=== PATIENT | male | born 1955 | race African-American/Black ===

== ENCOUNTER 2025-01-25 10:02 | Emergency (ER) | payer BC, MEDICARE ==
[~2025-01-25] VITALS: Ht 177.8 cm; Wt 99.0 kg
[2025-01-25 10:04] VITALS: O2SAT 98
[2025-01-25] MEDS: SODIUM CHLORIDE 0.9% 1,000 ML IV ONE (10:28)
[2025-01-25] MEDS: MECLIZINE 25MG TABLET PO ONE (10:28)
[2025-01-25 10:37] LABS: CHLORIDE 104 mEq/L (98-107); POTASSIUM 3.2 mEq/L (3.5-5.1); SODIUM 142 mEq/L (136-145)
[2025-01-25 10:38] LABS: CALCIUM 8.8 mg/dL (8.7-10.4); CARBON DIOXIDE 28 mEq/L (21-32)
[2025-01-25 10:43] LABS: CREATININE 1.4 mg/dL (0.6-1.3); GLUCOSE 130 mg/dL (70-105); UREA NITROGEN BLOOD 15 mg/dL (9-23)
[2025-01-25 10:44] LABS: EOSINOPHILS % 3.6 % (0.0-5.0); HEMOGLOBIN. 13.8 g/dL (14.0-18.0); LYMPHOCYTES % 32.3 % (20.0-50.0); MEAN CORPUSCULAR HGB CONC 33.6 g/dL (31.0-37.0); MEAN CORPUSCULAR VOLUME 86.4 fL (80.0-94.0); MONOCYTES % 13.2 % (2.0-8.0); NEUTROPHILS % 49.9 % (40.0-76.0); RED BLOOD CELL COUNT 4.75 mill/uL (4.7-6.1)
[2025-01-25 10:45] LABS: TROPONIN I HIGH SENSITIVITY < 4 ng/L (3.0-53)
[2025-01-25 10:49] LABS: DIFFERENTIAL COMMENT 1
[2025-01-25 11:31] LABS: PLATELET 186 x1000/uL (130-400)
[2025-01-25] MEDS ORDERED: ACETAMINOPHEN 325MG TABLET PO PRN ×2 (12:15)
[2025-01-25] MEDS ORDERED: POTASSIUM CHLORIDE 20MEQ TABLET SR PO SCH (12:15)
[2025-01-25] MEDS ORDERED: CLONIDINE 0.1MG TABLET PO PRN (12:15)
[2025-01-25] MEDS ORDERED: ONDANSETRON HCL 4MG/2ML INJ IV PRN (12:15)
[2025-01-25] MEDS ORDERED: SODIUM CHLORIDE 0.9% 1,000 ML IV SCH (12:15)
[2025-01-25 12:25] VITALS: BP 142/80; PULSE 72; RESP 18; TEMP 37.1; O2SAT 98
[2025-01-25 12:51] LABS: PHOSPHORUS 2.1 mg/dL (2.5-4.9)
[2025-01-25 12:54] LABS: FOLIC ACID (FOLATE) SERUM 18.32 ng/mL (>5.38); THYROID STIMULATING HORMONE 1.95 uIU/mL (0.55-4.78); VITAMIN B12 SERUM 465 pg/mL (211-911)
[2025-01-25 13:08] LABS: CLARITY URINE CLEAR (CLEAR); COLOR URINE YELLOW (YELLOW); GLUCOSE URINE NEGATIVE (NEGATIVE); KETONES URINE NEGATIVE (NEGATIVE); LEUKOCYTE ESTERASE URINE NEGATIVE (NEGATIVE); NITRITE URINE NEGATIVE (NEGATIVE); OCCULT BLOOD URINE NEGATIVE (NEGATIVE); PROTEIN URINE NEGATIVE (NEGATIVE); SPECIFIC GRAVITY URINE 1.014 (1.005-1.030); UROBILINOGEN URINE 0.2 E.U./dL (0.2-1.0)
[2025-01-25 13:25] LABS: *AMPHETAMINES SCREEN URINE NEGATIVE (NEGATIVE)
[2025-01-25 13:26] LABS: *BARBITURATES SCREEN URINE NEGATIVE (NEGATIVE); *BENZODIAZEPINES SCREEN URINE NEGATIVE (NEGATIVE); *COCAINE SCREEN URINE NEGATIVE (NEGATIVE); CANNABINOID URINE SCREEN NEGATIVE (NEGATIVE); ECSTASY MDMA SCREEN URINE NEGATIVE (NEGATIVE); METHADONE URINE SCREEN NEGATIVE (NEGATIVE); OPIATES URINE SCREEN NEGATIVE (NEGATIVE); PHENCYCLIDINE URINE SCREEN NEGATIVE (NEGATIVE)
[2025-01-25] MEDS ORDERED: ENOXAPARIN 30MG/0.3ML SYR SUBCUT SCH (21:00)
== END 2025-01-25 12:44 | disposition left against medical advice (07) ==
LOC: ER 10:02 → EDBEDREQ 11:33 → EDBEDREQTM 11:33 → ER 12:44
DX: R42 Dizziness and giddiness (principal); R26.2 Difficulty in walking, not elsewhere classified; I10 Essential (primary) hypertension; Z79.899 Other long term (current) drug therapy
CPT/HCPCS: 80305; 80048; 81003; 82607; 82746; 83880; 83735; 84100; 84443; 85025; 87086; 84484; 36415; 71045; 93005; 99285; J8597; J7030; Z7610; A4606